=== PATIENT | female | born 1980 | race Caucasian/White ===

== ENCOUNTER 2020-07-24 12:58 | Emergency (ER) | payer SELFPAY ==
[~2020-07-24] VITALS: Ht 175.3 cm; Wt 99.7 kg
--- NOTE | 2020-07-24 14:19 | PHYS DOC ---
Past Medical History Past Medical History: No Pertinent History (BRENDA MAY PNEUDRAULIC SYSTEMS MECHANIC) Past Surgical History: No Surgical History (BRENDA MAY APRN) Smoking Status: Current Every Day Smoker Alcohol Use: None (BRENDA MAY APRN) General Adult EDM: Chief Complaint: LOWER EXTREMITY SWELLING HPI: HPI: Patient is a 40 year old female who presents currently at [facility] for alcoholism. She is been clean since March. Patient states that she was seen at [facility] beginning of June for left ankle swelling. She states she was told she had a hairline fracture and did not have follow-up. She states that since then she has had swelling in her bilateral feet and ankles that are going up her legs with calf pain. She states her hands are also swelling. She states it is painful. She rates her sharp pain a 5 out of 10. She states she has not done any new activities are not denies any injuries. She does take gabapentin that she states that they prescribed her at [facility] for pain for the ankle she also takes Vistaril and she is a smoker. (BRENDA MAY PNEUDRAULIC SYSTEMS MECHANIC) Review of Systems: Review of Systems: Constitutional: Denies fever or chills. [] Eyes: Denies change in visual acuity. [] HENT: Denies nasal congestion or sore throat. [] Respiratory: Denies cough or shortness of breath. [] Cardiovascular: Denies chest pain. + Extremity edema. [] GI: Denies abdominal pain, nausea, vomiting, bloody stools or diarrhea. [] : Denies dysuria. [] Musculoskeletal: Denies back pain or joint pain. +Hands, feet and ankles pain [] Integument: Denies rash. [] Neurologic: Denies headache, focal weakness or sensory changes. [] Endocrine: Denies polyuria or polydipsia. [] Lymphatic: Denies swollen glands. [] Psychiatric: Denies depression or anxiety. [] (BRENDA MAY APRN) Heart Score: Risk Factors: Risk Factors: DM, Current or recent (<one month) smoker, HTN, HLP, family history of CAD, obesity. Risk Scores: Score 0 - 3: 2.5% MACE over next 6 weeks - Discharge Home Score 4 - 6: 20.3% MACE over next 6 weeks - Admit for Clinical Observation Score 7 - 10: 72.7% MACE over next 6 weeks - Early Invasive Strategies (BRENDA MAY APRN) Physical Exam: PE: Constitutional: Well developed, well nourished, no acute distress, non-toxic appearance. [] HENT: Normocephalic, atraumatic, bilateral external ears normal, oropharynx moist, no oral exudates, nose normal. [] Eyes: PERRLA, EOMI, conjunctiva normal, no discharge. [] Neck: Normal range of motion, no tenderness, supple, no stridor. [] Cardiovascular:Heart rate regular rhythm, no murmur [] Lungs & Thorax: Bilateral breath sounds clear to auscultation [] Abdomen: Bowel sounds normal, soft, no tenderness, no masses, no pulsatile masses. [] Skin: Warm, dry, no erythema, no rash. [] Back: No tenderness, no CVA tenderness. [] Extremities: Bilateral calfs tenderness, no cyanosis, no clubbing, ROM intact, right leg 2+, left leg 3+, bilateral hands 2+ edema. [] Neurologic: Alert and oriented X 3, normal motor function, normal sensory function, no focal deficits noted. [] Psychologic: Affect normal, judgement normal, mood normal. [] (BRENDA MAY APRN) Current Patient Data: Vital Signs: Vital Signs Date Time Temp Pulse Resp B/P (MAP) Pulse Ox O2 Delivery O2 Flow Rate FiO2 07/24/20 13:28 98.4 97 16 111/63 (79) 96 98.4 (BRENDA MAY APRN) EKG: EK and read by as sinus rhythm with flipped T waves in lead II and III. No STEMI. (BRENDA MAY APRN) Radiology/Procedures: Radiology/Procedures: [] Impression: [facility] [address] [place] [address] IMAGING REPORT Signed PATIENT: LIYA MOCTEZUMA ACCOUNT: [id number] : 1980 LOCATION: ER AGE: 40 SEX: F EXAM STATUS: REG ER ORD. PHYSICIAN: BRENDA MAY APRN REASON: pain, swelling to bilateral ankles x1 week PROCEDURE: ANKLE BILAT 3V ANKLE BILAT 3V DATE: 07/24/2020 2:05 PM INDICATION: Reason: pain, swelling to bilateral ankles x1 week / Spl. Instructions: / History: COMPARISON: None. FINDINGS: Right: No acute fracture. Ankle mortise is congruent. Plantar calcaneal enthesophyte. Diffuse soft tissue swelling. Left: No acute fracture. Ankle mortise is congruent. Plantar calcaneal enthesophyte. Diffuse soft tissue swelling. IMPRESSION: No acute fracture. Bilateral diffuse soft tissue swelling. Electronically signed by: Elba Otero MD (07/24/2020 3:12 PM) [id number] DICTATED and SIGNED BY: ELBA OTERO MD DATE: 07/24/20 [facility] [place] [address] IMAGING REPORT Signed PATIENT: LIYA MOTCEZUMA ACCOUNT: [id number] : 1980 LOCATION: ER AGE: 40 SEX: F EXAM STATUS: REG ER ORD. PHYSICIAN: WESLEY COOPER DO REASON: anasarca PROCEDURE: CHEST AP ONLY EXAM: Chest, single view. HISTORY: Body wall edema. COMPARISON: None. FINDINGS: A frontal view of the chest is obtained. There is no infiltrate, pleural effusion or pneumothorax. The heart is normal in size. IMPRESSION: No acute pulmonary finding. Electronically signed by: Jessy Flores MD (07/24/2020 2:58 PM) [id number] DICTATED and SIGNED BY: JESSY FLORES MD DATE: 07/24/20 [address] [address] [place] [address] IMAGING REPORT Signed PATIENT: LIYA MOCTEZUMA ACCOUNT: [id number] : 1980 LOCATION: ER AGE: 40 SEX: F EXAM STATUS: REG ER ORD. PHYSICIAN: BRENDA MAY APRN REASON: pain, swelling PROCEDURE: VENOUS LOWER EXT BILATERAL Exam: VENOUS LOWER EXT BILATERAL Indication: Reason: pain, swelling / Spl. Instructions: / History: Technique: Color-flow and pulsed wave duplex ultrasound with compression of venous structures of the bilateral lower extremities. Comparison: None Available. Findings: Duplex ultrasound with compression of the deep venous structures of the bilateral lower extremities from the common femoral vein through the popliteal vein is negative for DVT. The posterior tibial and peroneal veins are segmentally visualized and patent where seen. Normal venous waveforms and augmentation are noted throughout. Impression: No evidence for DVT in the bilateral lower extremities. Electronically signed by: Elba Otero MD (07/24/2020 4:02 PM) [id number] DICTATED and SIGNED BY: ELBA OTERO MD DATE: 07/24/201601 (BRENDA MAY APRN) Course & Med Decision Making: Course & Med Decision Making Pertinent Labs and Imaging studies reviewed. (See chart for details) See HPI. Alert and oriented x4. Ambulatory with a steady gait. Speaks in full complete sentences. Bilateral calves are tender with palpation. Patient has bilateral lower leg swelling with the right lower leg being 2+ in the left lower leg being 3+. Bilateral hands look to be 2+. Skin is pink warm and dry. Radial and pedal pulses are strong present. Cap refill less than 2 seconds. Patient denies chest pain, shortness of air, dizziness, headache, control use, travel, abdominal pain, nausea, vomiting, diarrhea, cough, vision changes, numbness or tingling, skin color changes, coolness of the extremities. No signs are within normal limits. Patient has slightly elevated liver enzymes. Patient is a slightly elevated BNP. X-rays show no acute findings. Vital signs are within normal limits. Ultrasound showed no DVT. Patient to follow-up with her primary care provider as soon as possible. Patient can continue taking either gabapentin ot the Garvin that the she is placed on previously. She is educated to not take both of the medications together. Patient is educated to not take them both the same day. Patient states her understanding. Patient is asking for a Pj wrap or a stirrup brace. Patient is given an Pj wrap and a air stirrup for her left ankle. [] (BRENDA MAY APRN) Dragon Disclaimer: Dragon Disclaimer: This electronic medical record was generated, in whole or in part, using a voice recognition dictation system. (BRENDA MAY APRN) Departure Departure Impression: Primary Impression: Peripheral edema Disposition: 01 DC HOME SELF CARE/HOMELESS Condition: STABLE Referrals: NO PCP (PCP) Patient Instructions: Peripheral Edema Additional Instructions: Try wearing compression stockings. Follow-up with your primary care doctor soon as possible. When you get home and you are able elevate your extremities for as long as possible. Drink plenty of water. Do not take Hydrocodone and Gabapentin. Take one or the other. Scripts Hydrocodone/Apap 5-325 (NORCO 5-325 TABLET) 1 Each Tablet 1 TAB PO PRN Q6HRS PRN for PAIN, #8 TAB 0 Refills Prov: BRENDA MAY APRN 07/24/20 Attending Signature Attending Signature I have reviewed the non-physician practitioner's documentation, personally taken the patient's history, performed an exam and agree with the physical findings, clinical impression, and management plan. (WESLEY COOPER DO) BRENDA MAY APRN Jul 24, 2020 14:19 WESLEY COOPER DO Jul 24, 2020 16:46
[2020-07-24 14:49] LABS: BASO # 0.1 x10^3/uL (0.0-0.2); BASO % 1 % (0-3); EOS # 0.3 x10^3/uL (0.0-0.7); EOS % 4 % (0-3); HEMATOCRIT 32.8 % (36.0-47.0); HEMOGLOBIN 11.2 g/dL (12.0-15.5); LYMPH % 28 % (24-48); MEAN CORPUSCULAR HEMOGLOBIN 29 pg (25-35); MEAN CORPUSCULAR HGB CONC 34 g/dL (31-37); MEAN CORPUSCULAR VOLUME 86 fL (79-100); MONO # 0.8 x10^3/uL (0.0-1.1); MONO % 11 % (0-9); NEUT # 4.1 x10^3/uL (1.8-7.7); NEUT % 56 % (31-73); PLATELET COUNT 292 x10^3/uL (140-400); RED BLOOD COUNT 3.82 x10^6/uL (3.50-5.40); RED CELL DISTRIBUTION WIDTH 13.6 % (11.5-14.5); WHITE BLOOD COUNT 7.3 x10^3/uL (4.0-11.0)
[2020-07-24 14:50] LABS: BILIRUBIN,URINE NEGATIVE (NEG); CLARITY,URINE CLOUDY; COLOR,URINE YELLOW; NITRITE,URINE NEGATIVE (NEG); PH,URINE 7.5 (<5.0-8.0); PROTEIN,URINE NEGATIVE (NEG-TRACE); UROBILINOGEN,URINE 0.2 mg/dL (0.2 mg/dL)
[2020-07-24 14:57] LABS: CALCIUM 8.9 mg/dL (8.5-10.1); GFR 62.1; POTASSIUM 4.1 mmol/L (3.5-5.1)
[2020-07-24 15:00] LABS: PROTHROMBIN TIME PATIENT 12.9 SEC (11.7-14.0)
--- NOTE | 2020-07-24 15:01 | RAD ---
EXAM: Chest, single view. HISTORY: Body wall edema. COMPARISON: None. FINDINGS: A frontal view of the chest is obtained. There is no infiltrate, pleural effusion or pneumothorax. The heart is normal in size. IMPRESSION: No acute pulmonary finding. Electronically signed by: Jessy Carter MD (07/24/2020 2:58 PM) [id number]
[2020-07-24 15:10] LABS: ALBUMIN 3.2 g/dL (3.4-5.0); ALBUMIN/GLOBULIN RATIO 1.1 (1.0-1.7); TOTAL BILIRUBIN 0.2 mg/dL (0.2-1.0); TOTAL PROTEIN 6.2 g/dL (6.4-8.2)
--- NOTE | 2020-07-24 15:15 | RAD ---
ANKLE BILAT 3V DATE: 07/24/2020 2:05 PM INDICATION: Reason: pain, swelling to bilateral ankles x1 week / Spl. Instructions: / History: COMPARISON: None. FINDINGS: Right: No acute fracture. Ankle mortise is congruent. Plantar calcaneal enthesophyte. Diffuse soft tissue swelling. Left: No acute fracture. Ankle mortise is congruent. Plantar calcaneal enthesophyte. Diffuse soft tissue swelling. IMPRESSION: No acute fracture. Bilateral diffuse soft tissue swelling. Electronically signed by: Jad Otero MD (07/24/2020 3:12 PM) [id number]
[2020-07-24 15:20] LABS: AMORPHOUS SEDIMENT,UR PRESENT /HPF
[2020-07-24 15:21] LABS: BACTERIA,URINE 0 /HPF (0-FEW); RBC,URINE 0 /HPF (0-2)
[2020-07-24 15:46] VITALS: BP 116/79
--- NOTE | 2020-07-24 16:04 | RAD ---
Exam: VENOUS LOWER EXT BILATERAL Indication: Reason: pain, swelling / Spl. Instructions: / History: Technique: Color-flow and pulsed wave duplex ultrasound with compression of venous structures of the bilateral lower extremities. Comparison: None Available. Findings: Duplex ultrasound with compression of the deep venous structures of the bilateral lower extremities from the common femoral vein through the popliteal vein is negative for DVT. The posterior tibial and peroneal veins are segmentally visualized and patent where seen. Normal venous waveforms and augmentation are noted throughout. Impression: No evidence for DVT in the bilateral lower extremities. Electronically signed by: Jad Otero MD (07/24/2020 4:02 PM) [id number]
[2020-07-24] MEDS ORDERED: HYDR-3164 PO (16:32)
== END 2020-07-24 16:48 | disposition home or self-care (01) ==
LOC: ER 12:58
DX: R60.0 Localized edema (principal); M25.571 Pain in right ankle and joints of right foot; M25.572 Pain in left ankle and joints of left foot; F17.200 Nicotine dependence, unspecified, uncomplicated
CPT/HCPCS: 36415; 71045; 73610; 80053; 81001; 83690; 83880; 85025; 85610; 87086; 93970; 99285